=== PATIENT | male | born 1970 | race Caucasian/White ===

== ENCOUNTER 2025-01-18 10:32 | Emergency (ER) | payer OTHER, SELFPAY ==
[2025-01-18] VITALS (22 sets, daily range): BP systolic 116–159; BP diastolic 84–112; PULSE 56–68; RESP 16–20; TEMP 36.4–36.5; O2SAT 77–100
--- NOTE | 2025-01-18 10:37 | W.ED.GENAD ---
Discharge Plan Disposition Patient Disposition: Transfer-Acute Inpatient Care Specific Acute Inpt Facility: [facility] Discharge Details Clinical Impression: Laceration of hand, left, Immunization, tetanus-diphtheria Primary Care Provider: Verónica,Local ED Provider: Roderick Ochoa Home Meds and New Rx's Prescriptions: No Action No Known Home Meds Discharge Instructions Additional Instructions: You were seen in the emergency department for your hand laceration. You are advised to go to the [facility] emergency department: [facility] Address: [address] [place] [address] [place] [address] Please do not eat or drink before going to emergency department. You received immunization against tetanus and 2 g of cefazolin in the emergency department. HPI General Date/Time Provider Initiated Documentation: 01/18/25 10:37. HPI Narrative: MDM This is an overall well-appearing normothermic and not tachycardic [id number] 54-year-old male with significant left upper extremity laceration for which we will obtain plain films update tetanus status and treat with 2 g cefazolin given depth of laceration. Fortunately his sensory and motor exam is reassuring. Will also apply LAT given laceration is away from fingertips treat with ketorolac and IV acetaminophen. We unfortunately do not have orthopedics on-call. I was in touch with Dr. Byrd from [facility] orthopedics and he advised transfer for evaluation. X-ray negative for any acute osseous abnormalities. Patient IV was pulled and he was transferred via POV with his . [facility] accepting was Dr. Sr. Peripheral IV access removed prior to transfer via private vehicle. HPI This is a [id number] 54-year-old male arrived to the emergency department via peds in the setting of a laceration he sustained to his left hand just prior to arrival. Patient reports that he was using a miter saw this morning. He was cutting pine to make some shelves and inadvertently cut his left hand on the sawblade. He is not sure when his last tetanus was updated. He was able to control the bleeding at home. He was in his usual state of health earlier today. Exam General: Well-appearing in no acute distress speaking in complete sentences. Head: Normocephalic, atraumatic. Eye: Extraocular eye movements intact. No conjunctival injection. No scleral icterus. Ear, nose, mouth, throat: Grossly normal inspection. Normal voice, handling secretions normally. Neck: Trachea midline. Cardiovascular: Well-perfused distal extremities. Respiratory: Nonlabored respiration. Gastrointestinal: Nondistended abdomen. Musculoskeletal: On the dorsal aspect of the left hand in the webspace between the thumb and the index finger there is a hemostatic approximately 4 cm laceration that violates the subcutaneous tissue that appears to involve the underlying muscle layer. Patient has full range of motion in his left thumb in abduction and adduction flexion and extension. Left index finger full range of motion flexion and extension at the MCP, PIP, and DIP joints. Cap refill less than 2 seconds in the fingertips of the left hand. 2+ left radial pulse. Skin: Normal for age and race, grossly normal temperature and turgor. No acute rash. Neurologic: Alert and appropriate, no apparent acute deficits. GCS 15. Psychiatric: Mood and manner are appropriate. Grooming and personal hygiene are appropriate. Related Data Home Medications ?Medication ?Instructions ?Recorded ?Confirmed Unknown [No Known Home Meds] 01/18/25 01/18/25 Medical Decision Making Quality:SDOH Health Related Social Needs: No Data to Display [facility] All Active Problems (Updated 01/18/25 @ 11:17 by Roderick Ochoa MD) Immunization, tetanus-diphtheria (Acute) Laceration of hand, left (Acute) Social History Smoking/Tobacco Use Status: Never Smoking risk assessment performed?: Yes Alcohol Intake: current Alcohol Intake frequency: holidays/special occasions only Alcohol type: beer Drug use: Never Substance use type: does not use Housing: house Do you feel safe at home: Yes Do you feel safe in your relationship?: Yes
[2025-01-18] MEDS: ceFAZolin 2 GM/50 ML BAG IVPB (11:39)
[2025-01-18] MEDS: Ketorolac 15 MG/ML VIAL IVP (11:39)
[2025-01-18] MEDS: Diph,Pertuss(Acell),Tet Vac/Pf 0.5 ML SYR IM (11:41)
[2025-01-18] MEDS: Normal Saline 1,000 ML 1000 ML IV (11:42)
[2025-01-18] MEDS: ACETAMINOPHEN 1,000 MG/100 ML BTL 400 MG IVPB (11:42)
[2025-01-18] MEDS: Lidocaine/Epinephri/Tetracaine Topical Gel 3 ML TP (11:43)
--- NOTE | 2025-01-18 12:10 | DI.RAD_ITS ---
Exam(s) XR HAND LT COMPLETE EXAM: XR HAND LT COMPLETE CLINICAL HISTORY: left hand lac. TECHNIQUE: 2D digital imaging was performed of the left hand. Three views were obtained. AP, later al and oblique views were obtained. COMPARISON: No exams were available for comparison FINDINGS: BONES: No acute fracture is present. No bony destructive lesion is seen. JOINTS: No dislocation present. SOFT TISSUE: No soft tissue gas or radiopaque foreign bodies are seen. IMPRESSION: No acute fracture, dislocation or radiopaque foreign body. DATA REPOSITORY: RADIATION DOSE DELIVERED:
== END 2025-01-18 14:35 | disposition short-term general hospital (02) ==
PROVIDERS: Emergency Provider Emergency Medicine
DX: S61.412A Laceration without foreign body of left hand, initial encounter (principal); Z23 Encounter for immunization; W31.2XXA Contact with powered woodworking and forming machines, initial encounter
CPT/HCPCS: 99285 ×2; 90471; 96375; 90715; 96365; 96366; 96367; 73130; J0131; J0690; J1885